=== PATIENT | female | born 1940 | race Caucasian/White ===

== ENCOUNTER 2022-04-22 08:06 | Day surgery (SDC) | payer MEDICARE ==
[~2022-04-22] VITALS: Ht 172.7 cm; Wt 88.5 kg
[~2022-04-22 08:06] MED LIST: ALPRAZOLAM0.5 MG PO; AMLODIPINE BESY10 MG PO; AMLODIPINE2.5 MG PO; AMOXICILLIN500 MG PO; ASPIRIN LOW DOS81 M2 PO; AUGMENTIN500TAB PO; BL ADULT ASA81 MG OR; CAL MAG ZINC PO; CALCIUM + D600 MG OR; CIPROFLOXACN500 MG PO; FLUZONE SPLT1 M1 IM; HYDROCHLOROT25 MG PO; KEFLEX500 MG PO; LISINOPRIL40 MG PO; LORTAB 5/3255 MG PO; LOTRISONE CREAM15 G1 EX; METFORMIN500 M1 PO; METFORMIN500 MG PO; METOPROL TAR25 MG PO; OMEPRAZOLE DR40 MG PO; PRILOSEC40 MG PO; SIMVASTATIN20 MG PO; SIMVASTATIN40 MG PO; ZANTAC150 M1 PO; ZYRTEC10 MG PO; [UNRECOGNIZED DRUG - OTHER] PO
[2022-04-22 10:41] VITALS: BP 103/58
== END 2022-04-22 10:55 | disposition home or self-care (01) ==
LOC: ENDO 08:06 → ORM 12:45
PROVIDERS: ATTEND Internal Medicine Gastroenterology
PROC: 0DBE8ZX Excision of Large Intestine, Via Natural or Artificial Opening Endoscopic, Diagnostic (ICD-10-PCS; principal; 2022-04-22)
DX: K58.0 Irritable bowel syndrome with diarrhea (principal); K57.30 Diverticulosis of large intestine without perforation or abscess without bleeding; K64.8 Other hemorrhoids; E11.40 Type 2 diabetes mellitus with diabetic neuropathy, unspecified; Z79.84 Long term (current) use of oral hypoglycemic drugs; Z86.010 Personal history of colon polyps